=== PATIENT | male | born 1965 | race Caucasian/White ===

== ENCOUNTER 2021-02-28 14:16 | Emergency (ER) | payer BC, SELFPAY ==
[2021-02-28 14:25] VITALS: BP 180/101; PULSE 82; RESP 16; TEMP 36.8; O2SAT 99
[2021-02-28 14:30] VITALS: BP 180/101; PULSE 82; RESP 16; TEMP 36.8; O2SAT 99
--- NOTE | 2021-02-28 14:51 | ED.WOUNDLAC ---
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 Patient states he had a witnessed spider insect bite along the inferior aspect of his kneecap at the beginning the week, while at work. He then a day or 2 later , had to work upon his knees, and has since noticed increasing pain discomfort in the area with surrounding redness. No fever, abscess/induration, posterior pain, foreign body; patient had Covid vaccination 3 weeks ago and has queries regarding blood clot. Symptoms are primarily and purely around the kneecap and anterior; no posterior redness, swelling, recent trips, SOB, CP. Screening vital signs remarkable for systolic blood pressures of 180 ; he requests refill of his antihypertensive [so suggestive of noncompliance].Patient advised go to hospital for higher level testing which he declines, and patient declines parenteral/IM antibiotics here Related Data Home Medications Medication Instructions Recorded Confirmed valsartan-hydrochlorothiazide tablet 02/28/21 Allergies Allergy/AdvReac Type Severity Reaction Status Date / Time No Known Allergies Allergy Unverified 09/16/13 15:00 Review of Systems Review of Systems: Narrative: General/Constitutional: No weight loss,fever Eyes: N0: Redness,discharge Ears/Nose/Throat: No: Epistaxis,ear discharge Respiratory: Denies: Hemoptysis Gastrointestinal: No Vomiting, Bleeding-rectal Skin: No Lumps, REPORTS eruption Neurologic: No Focal Weakness,Sz Hematologic: Denies: Petechiae/Purpura Psychiatric: No: Suicida ideationl All Other Systems: Reviewed and Negative PMFSH Comments At time of signature, agree with nursing past medical, surgical, social and family history. There is no relevant family history pertinent to the presenting complaint Exam Narrative: Exam Narrative: General Appearance: Well appearing, overweight/well nourished, conjunctiva clear Nose: Normal nose, Nares clear Mouth/Throat: Normal appearing, Normal lips Supple Respiratory: Airway patent, No respiratory distress MS: Normal strength (mostly intact, limited flexion/extension by pain), Tenderness (anteriorly, with mild decreased ROM), scant swelling (anteriorly), Other (no anterior drawer, no collateral laxity, no Homans Skin: Warm, Dry, RLE only slightly flushed/pink and edematous , no post calf redness or pain Neurological: A&O x3, Speech clear, CN II-XII intact Psychiatric: Normal mood, Normal affect Course Vital Signs Vital signs: Vital Signs Temperature 98.2 F 02/28/21 14:25 Pulse Rate 82 02/28/21 14:25 Respiratory Rate 16 02/28/21 14:25 Blood Pressure 180/101 H 02/28/21 14:25 Pulse Oximetry 99 02/28/21 14:25 Temperature 98.2 F 02/28/21 14:30 Pulse Rate 82 02/28/21 14:30 Respiratory Rate 16 02/28/21 14:30 Blood Pressure 180/101 H 02/28/21 14:30 Pulse Oximetry 99 02/28/21 14:30 Discharge Plan Discharge Clinical Impression: Infected bite of lower leg Qualifiers: Encounter type: initial encounter Laterality: right Qualified Code(s): S81.851A - Open bite, right lower leg, initial encounter Patient Disposition: Home, Self-Care Condition: Stable Instructions: Cellulitis (ED), Knee Bursitis (ED) Additional Instructions: Take clindamycin with food, probiotics; stop clindamycin if diarrhea occurs Keep photo log of area; you have declined to go to the hospital-you may go there any time especially if not improved Prescriptions: New clindamycin HCl 300 mg capsule 300 mg PO TID Qty: 21 RF: 0 prednisone 20 mg tablet 40 mg PO DAILY Qty: 6 RF: 0 valsartan-hydrochlorothiazide [Diovan HCT] 80-12.5 mg tablet 1 tablet PO DAILY Qty: 30 RF: 1 No Action valsartan-hydrochlorothi
== END 2021-02-28 15:04 | disposition home or self-care (01) ==
PROVIDERS: Emergency Provider Emergency Medicine
DX: L08.9 Local infection of the skin and subcutaneous tissue, unspecified (principal); S80.261A Insect bite (nonvenomous), right knee, initial encounter; W57.XXXA Bitten or stung by nonvenomous insect and other nonvenomous arthropods, initial encounter; I10 Essential (primary) hypertension
CPT/HCPCS: 99213; G0463

== ENCOUNTER 2023-11-27 08:16 | Emergency (ER) | payer BC, SELFPAY ==
--- NOTE | 2023-11-27 08:31 | ED.EXTPRO ---
HPI - Extremity Problem General Chief complaint: Extremity Injury, Lower Stated complaint: right leg issue Time Seen by Provider: 11/27/23 08:31 Source: patient Mode of arrival: ambulatory Limitations: no limitations History of Present Illness HPI Narrative: Kingsley is a 58-year-old male patient presenting to the clinic today with complaints of right leg numbness and tingling. Reports that he has been having numbness and tingling in the left leg and foot for some time now however this morning he developed numbness and tingling in his right leg and foot. He reports he has been told he is a diabetic but has been in denial about being a diabetic and has not started any medications for this. Has not seen a doctor in several years. States that his last doctor retired. Has a new doctor's appointment with a primary care provider on December 19. States he has also been having polyphagia, polyuria, and polydipsia as well as blurry vision. Related Data Home Medications Medication Instructions Recorded Confirmed No Home Medications 11/27/23 11/27/23 Allergies Allergy/AdvReac Type Severity Reaction Status Date / Time No Known Allergies Allergy Unverified 09/16/13 15:00 Review of Systems Review of Systems: Pertinent positives per HPI. Patient denies any fever, chills, rash, headache, dizziness, cough, runny nose, sore throat, shortness of breath, chest pain, palpitations, nausea, vomiting, diarrhea, constipation, abdominal pain, or any urinary issues. PMFSH Comments At the time of my signature, I reviewed and agree with the nursing past medical, surgical, social, and family history. There is no relevant family history pertinent to the patient complaint. Exam Narrative: General: Well-developed, well nourished, in no apparent distress Head: Normocephalic, atraumatic Eyes: Pupils equally round and reactive to light bilaterally, EOM intact, sclera and conjunctive clear, no discharge, lids normal Ears: TMs intact and clear, ear canals clear, no drainage, grossly hearing normal. Nose: Nares patent, no discharge, no inflammation, no sinus tenderness. Mouth: Oropharynx without lesions or masses, good dentition, MMM. Neck: Supple, trachea midline, no enlargement of anterior or posterior cervical nodes, no thyroid masses or goiter palpable. Cardio: Regular rate and rhythm, s1 and s2 normal, no murmur appreciated. Resp: Clear to auscultation bilaterally anteriorly and posteriorly, no rhonchi, rales, wheezing or rubs Musculoskeletal: No deformity, non-tender to palpation, grossly normal range of motion, muscle strength strong and equal, peripheral pulse strong, no edema, no cyanosis, normal gait and station Course Course Emergency Course: Portions of this record may have been created with voice recognition software. Level of Care: Express Care Visit Vital Signs Vital signs: Vital signs reviewed MDM - Extremity (Nontraumatic) MDM Narrative Medical decision making narrative: At the time of visit patient is resting comfortably on the exam table. Patient appears to be nontoxic. Labs: Fasting random blood sugar was 164 in the clinic today. Urinalysis shows 2+ protein and 2+ glucose in the urine. Plan: Patient has hyperglycemia with 2+ glucose and 2+ protein in his urine. Recommend sending to the ER for further evaluation-labs. Patient would like to be transfer to [facility]. Report called to Onel DEAN for continuity of care and Dr. Kwan accepts patient for transfer. Differential Diagnosis Differential diagnosis: Likely gout, cellulitis, superficial thrombophlebitis, lower extremity edema, deep vein thrombosis of lower extremity and other (Paresthesia, neuropathy, electrolyte imbalance, hyperglycemia, type 2 diabetes, diabetic neuropathy) Discharge Plan Discharge Clinical Impression: Hyperglycemia, Numbness and tingling of both lower extremities, Blurred vision, Polyphagia, Polyuria, Polydipsia Patient Di
[2023-11-27 08:32] VITALS: BP 166/91; PULSE 73; RESP 18; TEMP 36.7; O2SAT 98
[2023-11-27 08:57] LABS: Glucose Point of Care 164 mg/dl (65-105)
== END 2023-11-27 09:18 | disposition short-term general hospital (02) ==
PROVIDERS: Emergency Provider Nurse Practitioner Family
DX: R73.9 Hyperglycemia, unspecified (principal); R20.0 Anesthesia of skin; R20.2 Paresthesia of skin; H53.8 Other visual disturbances; R63.2 Polyphagia; R35.89 Other polyuria; R63.1 Polydipsia; I10 Essential (primary) hypertension
CPT/HCPCS: 81003; 82948; 99212; G0463

== ENCOUNTER 2023-11-27 09:38 | Emergency (ER) | payer BC, SELFPAY ==
[2023-11-27] VITALS (7 sets, daily range): BP systolic 141–180; BP diastolic 80–106; PULSE 70–79; RESP 17–20; TEMP 36.6; O2SAT 97–100
--- NOTE | ~2023-11-27 | US_ITS ---
EXAMINATION: US venous doppler LE RT DATE: 11/27/2023 15:28 INDICATION: Lower extremity pain, paresthesias. TECHNIQUE: Grayscale images without and with compression and Doppler images of the right lower extrem ity veins were obtained. COMPARISON: None FINDINGS: The right common femoral vein, profunda (deep) femoral vein, femoral vein, popliteal vein, peroneal v ein, posterior tibial veins, gastrocnemius vein, and greater saphenous vein are patent. IMPRESSION: Patent right lower extremity veins. No evidence of deep venous thrombosis. Reviewed, dictated and finalized at location K.
--- NOTE | 2023-11-27 12:43 | ED.RECABL ---
HPI - Recheck/Abnormal Lab/Rx General Chief Complaint: Recheck/Abnormal Lab/Rx Stated Complaint: hyperglycemia Time Seen by Provider: 11/27/23 12:39 Source: patient, family ( ), RN notes reviewed and other (Express Care documentation) Mode of arrival: ambulatory Limitations: no limitations History of Present Illness HPI narrative: the patient presents from psychiatric. he has been experiencing intermittent bilateral pain, numbness, and tingling in particular today had right lower extremity symptoms while at work. He describes it as a sharp pain from his knee radiating down to his foot. Express care documentation notes polyphagia, polyuria, polydipsia however patient denies any of these symptoms. He does state in fact that he does not drink much water. he occasionally experiences blurred vision. There was question of whether he has a history of diabetes. Someone told him he might be does not officially carry this diagnosis and is not on any medications for this. He does not currently have a primary care physician but is set to establish with an as a new patient on 12/13/2023. He denies any back pain. He does drink a 30 pack of alcohol on the weekends. 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 HEAD: Normocephalic, atraumatic. EYES: Non injected, non icteric ENT: Nares clear, no rhinorrhea or epistaxis. patient has telangiectasias notable at nose/cheeks NECK: Supple. CHEST: Speaking in complete sentences. No respiratory distress. HEART: Regular rate and rhythm. Strong 2+ DP pulses bilaterally ABDOMEN: Soft, nondistended. EXTREMITIES: Normal range of motion. No edema. full range of motion with 5/5 strength with bilateral ankle dorsiflexion, plantar flexion, eversion, and inversion. SKIN: Warm, dry, no rash. Patient has slight scattered petechiae on bilateral lower extremities. NEURO: No focal deficits. Alert and oriented x3. PSYCH: Normal mood and affect. Course Vital Signs Vital signs: Vital Signs Temperature 97.8 F 11/27/23 09:42 Pulse Rate 79 11/27/23 09:42 Respiratory Rate 18 11/27/23 09:42 Blood Pressure 141/80 H 11/27/23 09:42 Pulse Oximetry 100 11/27/23 09:42 Oxygen Delivery Room Air 11/27/23 09:42 Temperature 97.8 F 11/27/23 09:42 Pulse Rate 72 11/27/23 16:49 Respiratory Rate 20 11/27/23 16:49 Blood Pressure 166/92 H 11/27/23 16:49 Pulse Oximetry 97 11/27/23 16:49 Oxygen Delivery Room Air 11/27/23 09:42 MDM - Recheck/Abnormal Lab/Rx MDM Narrative Medical decision making narrative: Patient sent from urgent care. patient has been experiencing bilateral lower extremity numbness and tingling intermittently and today had an episode this associated with sharp pain in the right lower extremity particularly. in the emergency department he is afebrile with vital signs that show hypertension. Differential diagnosis: gout, cellulitis, superficial thrombophlebitis, lower extremity edema, deep vein thrombosis of lower extremity and other (Paresthesia, neuropathy, electrolyte imbalance, hyperglycemia, type 2 diabetes, diabetic neuropathy). While there was concern for diabetes and or DVT through urgent care and we will obtain labs including hemoglobin A1c and imaging of DVT study he had a normal urinalysis and is not complaining of polyphagia, polyuria, or polydipsia thus less patel
[2023-11-27 13:01] LABS: Basophils Percent Auto 0.4 % (0.2-1.2); Eosinophils Absolute Auto 0.1 K/mm3 (0-0.3); Eosinophils Percent Auto 2.3 % (0-4.4); Hematocrit 47.5 % (42.0-52.0); Hemoglobin 16.2 g/dL (14.0-18.0); Immature Granulocyte Absolute 0.01 K/mm3 (0.00-0.031); Immature Granulocyte Percent A 0.2 % (0-0.5); Immature Platelet Fraction Pct 9.6 % (0.9-11.2); Lymphocytes Absolute Auto 1.67 K/mm3 (0.9-3.2); Lymphocytes Percent Auto 34.9 % (18.3-44.2); Mean Corpuscular HGB Conc 34.1 g/dl (32-36); Mean Corpuscular Hemoglobin 30.1 pg (26-34); Mean Corpuscular Volume 88.3 fl (80-100); Mean Platelet Volume 12.2 fl (7.4-10.4); Monocytes Absolute Auto 0.4 K/mm3 (0.1-0.6); Monocytes Percent Auto 7.5 % (2.6-8.5); Neutrophils Absolute Auto 2.6 K/mm3 (1.3-6.7); Neutrophils Percent Auto 54.7 % (45.5-73.1); Platelet Count Result 73 k/mm3 (150-375); Red Blood Count 5.38 M/mm3 (4.6-6.20); Red Cell Distribution Width 13.2 % (11.5-14.5); White Blood Count 4.8 K/mm3 (4.5-10.0)
[2023-11-27 13:11] LABS: Appearance Urine Clear (Clear); Bacteria Urine None Seen /hpf; Bilirubin Urine Negative (Negative); Blood Urine Negative (Negative); Color Urine Dark Yellow (Yellow); Glucose Urine UA 3+ mg/dL (Negative); Ketones Urine Negative (Negative); Leukocyte Esterase Ur Negative LEU/UL (Negative); Nitrate Urine Negative (Negative); Non Pathogenic Casts 0-2; Protein Urine 1+ mg/dL (Negative); RBC Urine 0-2 /hpf (0-2); Squamous Epithelial Cell Urine None Seen /hpf (Few); WBC Urine 0-5 /hpf (0-3); pH Urine 5.5 (5.0-9.0)
[2023-11-27 13:11] LABS: Alanine Aminotransferase 81 U/L (6-50); Albumin Level 4.5 g/dL (3.5-5.1); Alkaline Phosphatase 68 U/L (38-126); Anion Gap 7 mmol/L (4-12); Aspartate Amino Transferase 73 U/L (17-59); Bilirubin,Total 1.3 mg/dL (0.2-1.3); Blood Urea Nitrogen 13 mg/dL (9-20); Calcium 9.9 mg/dL (8.4-10.2); Carbon Dioxide 24 mmol/L (22-30); Chloride 107 mmol/L (98-107); Estimated CRCL calculation 176 ml/min; Estimated Glomerular Filt Rate > 60; Glucose 126 mg/dL (65-110); Magnesium 2.3 mg/dL (1.6-2.3); Potassium 4.1 mmol/L (3.4-5.0); Sodium 138 mmol/L (137-145)
[2023-11-27 13:18] LABS: Creatine Kinase 147 U/L (55-170)
[2023-11-27 13:18] LABS: Add Urine Microscopic? YES; Specific Grav Ur 1.031 (1.001-1.035)
--- NOTE | 2023-11-27 13:35 | PC.NURSE ---
Pt reports having hx of HTN, PCP prescribed bp meds and pt stopped taking them stating he didn't feel like they were working, hasn't f/u with PCP in a while states he retired for a while but is back now . Reports has apt scheduled next week regarding his diabetes.
[2023-11-27 14:29] LABS: Platelet Estimate Decreased (Adequate); Schistocytes None Seen
[2023-11-27 15:05] LABS: Hemoglobin A1C 8.6 % (<5.7)
[2023-11-27 15:19] LABS: Monoscreen Negative (Negative); Negative Monotest Control Negative (Negative); Positive Monotest Control Positive (Positive)
[2023-11-27 15:29] LABS: INR 1.1; Prothrombin Time 14.2 Seconds (11.1-14.7)
[2023-11-27 15:30] LABS: Fibrinogen 288 mg/dl (215-510)
[2023-11-27 15:59] LABS: HIV 1/2 Ab P24 Ag Result Negative (Negative)
--- NOTE | 2023-11-27 15:59 | PC.NURSE ---
Pt reports being hungry, made aware, permission to have snack and water.
== END 2023-11-27 16:50 | disposition home or self-care (01) ==
PROVIDERS: Emergency Provider Student in an Organized Health Care Education/Training Program; PCP Family Medicine
DX: E11.40 Type 2 diabetes mellitus with diabetic neuropathy, unspecified (principal); D69.6 Thrombocytopenia, unspecified; R74.01 Elevation of levels of liver transaminase levels; I10 Essential (primary) hypertension; F10.90 Alcohol use, unspecified, uncomplicated
CPT/HCPCS: 36415; 80053; 81001; 81003; 82525; 82550; 82607; 82746; 82948; 83036; 83735; 85025; 85055; 85384; 85610; 86308; 86703; 93971; 99284; G0432